=== PATIENT | female | born 1965 | race Caucasian/White ===

== ENCOUNTER 2022-10-12 07:43 | Inpatient (IN) | payer OTHER, SELFPAY ==
[2022-10-12] VITALS (17 sets, daily range): BP systolic 87–118; BP diastolic 57–79; PULSE 69–97; RESP 16–79; TEMP 35.8–37.3; O2SAT 94–100; BMI 21.0; BMI 22.0
--- NOTE | 2022-10-12 08:09 | ED.ABDPAIN ---
HPI - Abdominal Pain General Time Seen by Provider: 08:05 Date Seen: 10/12/22 Chief Complaint: Abdominal Pain Stated Complaint: Severe abdominal pain/vomiting Time Seen by Provider: 10/12/22 08:09 Source: patient, family, RN notes reviewed and old records reviewed Mode of arrival: ambulatory Limitations: no limitations History of Present Illness HPI narrative: for Patient is a very pleasant 57-year-old female previously healthy who comes to the emergency room for evaluation regarding vomiting and abdominal pain. Patient notes that she thought she had some stomach acid last night and took a Pepcid at approximately 1700 hours and then 2300 hours. She states that it this did help the burping that she was experiencing. However it 2300 hours she awoke with the significant abdominal pain has been persistently vomiting. The last time this happened was probably 1 and half to 2 years ago and lasted for 4 days. At that time patient did see GI specialist at [facility]. They note nothing was found at that time and they were instructed to return if this should happen again. Patient notes normal bowel movement this morning. She denies urinary issues, diarrhea. She does agree that her abdomen seems somewhat bloated. She has not had any fevers chills. She denies any congestion sore throat or runny nose. She does not smoke nor use alcohol daily. Related Data Home Medications Medication Instructions Recorded Confirmed No Known Home Medications 10/12/22 10/12/22 Allergies Allergy/AdvReac Type Severity Reaction Status Date / Time No Known Drug Allergies Allergy Verified 10/12/22 07:51 Review of Systems Status of ROS Reports: 10 or more systems reviewed and unremarkable except as noted in History and below Const Denies: fever or chills ENMT Denies: throat pain, difficulty swallowing or hoarseness Cardio Denies: chest pain, swelling of feet/ankles or shortness of breath with exertion Resp Denies: shortness of breath or cough GI Reports: abdominal pain, nausea and vomiting; Denies: diarrhea or difficulty swallowing Denies: painful urination or urinary frequency Musculo Denies: back pain (Pain does not radiate) Neuro Denies: headache Endo Denies: excessive urination PFSH PFSH Social History Smoking Status: Never smoker Do you use any of these nicotine containing products: None Second hand tobacco smoke exposure: Yes How often do you have a drink containing alcohol: monthly or less How many standard drinks containing alcohol do you have on a typical day: 1 or 2 AUDIT-C Alcohol total score: 1 Non-prescribed substance use: denies use Exam Narrative: Exam Narrative: Patient is alert and oriented. She is in moderate distress very anxious and at the end of our exam she does have excessive retching without major production of vomitus. Eyes are clear. Neck is supple. Heart with regular rate and rhythm. Lungs are clear in all lung lobato. Abdomen is somewhat protuberant. Diffuse tenderness noted. Bowel sounds are somewhat decreased. Lower extremities without edema. Const: Vital Signs, click to edit/add: Vital Signs - 24 hr 10/12/22 07:48 10/12/22 08:31 10/12/22 08:25 Temperature 96.5 F L Pulse Rate 76 Pulse Rate [Pulse Oximeter] 84 73 Respiratory Rate 22 20 Blood Pressure Blood Pressure [Ri ght Upper Arm] 95/79 87/71 L Pulse Oximetry 98 99 100 Oxygen Delivery Me thod Room Air Room Air 10/12/22 08:26 10/12/22 08:30 10/12/22 08:32 Temperature Pulse Rate 79 75 69 Pulse Rate [Pulse Oximeter] Respiratory Rate Blood Pressure 87/57 L 87/71 L Blood Pressure [Ri ght Upper Arm] Pulse Oximetry 100 99 100 Oxygen Delivery Me thod 10/12/22 08:45 10/12/22 09:14 10/12/22 09:16 Temperature Pulse Rate 70 75 74 Pulse Rate [Pulse Oximeter] Respiratory Rate Blood Pressure Blood Pressure [Ri ght Upper Arm] Pulse Oximetry 100 99 100 Oxygen Delivery Me thod Documenting provider has reviewed patient's vital signs: yes Course Course Hospital Course: At this time differential diagnosis includes but is not limited to small-bowel obstruction, biliary colic, colitis, gastroenteritis, pancreatitis, diverticulitis. Will place IV. 1 L of normal saline, Toradol 15 mg IV, morphine 4 mg IV, Zofran 4 mg IV given. Blood work to include CBC, comprehensive panel, CRP, amylase, lipase, urinalysis and abdominal CT will be ordered. Reevaluation(s) Reevaluation #1: Much improved after having received medications. Blood pressure improved to 111 systolic. Vital Signs Vital signs: Initial Vital Signs Temperature 96.5 F L 10/12/22 07:48 Temperature Source Temporal Artery Scan 10/12/22 07:48 Pulse Rate 84 10/12/22 07:48 Respiratory Rate 22 10/12/22 07:48 Blood Pressure 95/79 10/12/22 07:48 Blood Pressure Mean 84 10/12/22 07:48 Blood Pressure Position Supine 10/12/22 07:48 Pulse Oximetry 98 10/12/22 07:48 Oxygen Delivery Method 10/12/22 07:48 Vital Signs Temperature 96.5 F L 10/12/22 07:48 Pulse Rate 84 10/12/22 07:48 Respiratory Rate 22 10/12/22 07:48 Blood Pressure 95/79 10/12/22 07:48 Pulse Oximetry 98 10/12/22 07:48 Oxygen Delivery Method 10/12/22 07:48 Temperature 96.5 F L 10/12/22 07:48 Pulse Rate 74 10/12/22 09:16 Respiratory Rate 20 10/12/22 08:31 Blood Pressure 87/71 L 10/12/22 08:32 Pulse Oximetry 100 10/12/22 09:16 Oxygen Delivery Method 10/12/22 08:31 MDM - Abdominal Pain MDM Narrative Medical decision making narrative: 1. Small-bowel obstruction-patient noted to have thickening of the terminal ileum but no personal or family history of Crohn's disease. Looking back the last time this happened was 4 years ago. History of 2 previous C-sections. Patient improved with morphine and Toradol. Zofran has eliminated the vomiting. At this time will hold off on NG tube as she is much improved. However, I have told patient this may be necessary in the future. Will admit to the floor for surgical consultation, bowel rest and pain control. Note colonoscopy 2020 was normal. Previous colonoscopy had noted to have a polyp. 2. Hypotension-patient is a petite person but blood pressure did drop to 87 systolic. Likely secondary to vomiting although pulse is not tachycardic. 1 L of normal saline given at this time with improvement of blood pressures to 111 systolic. Patient states that she ?runs low?. 3. Disposition-admit to the floor. Medical Records Attestation: I reviewed the patient's medical records. Lab Data Attestation: I reviewed the patient's lab results. Labs: Lab Results 10/12/22 10/12/22 10/12/22 Range/Units 08:00 08:05 08:05 WBC 11.81 H (4.50-11.00) K/uL RBC 5.20 (4.00-5.20) m/uL Hgb 14.3 (12.0-16.0) gm/dL Hct 43.5 (33.0-51.0) % MCV 84 (80-100) fL MCH 28 (26-34) pg MCHC 33 (32-36) gm/dL RDW Coeff of [place] 12.8 (11.5-15.5) % Plt Count 197 (140-440) K/uL Neut % (Auto) 88.9 H (42.0-72.0) % Lymph % (Auto) 4.7 L (20-44) % [place] % (Auto) 6.0 (0.0-11.0) % Eos % (Auto) 0.2 (0.0-7.0) % Baso % (Auto) 0.1 (0.0-3.0) % Neut # (Auto) 10.50 H (1.7-7.0) K/uL Lymph # (Auto) 0.60 L (0.90-2.90) K/uL [place] # (Auto) 0.70 (0.00-0.90) K/UL Eos # (Auto) 0.00 (0.00-0.50) K/uL Baso # (Auto) 0.00 (0.00-0.30) K/uL Sodium 140 (135-149) mmol/L Potassium 4.2 (3.6-5.1) mmol/L Chloride 105 (96-114) mmol/L Carbon Dioxide 24 (20-32) mmol/L BUN 17 (7-30) mg/dL Creatinine 0.8 (0.5-1.5) mg/dL Estimated Creat Clear 78.72 Estimated GFR 86 ml/min Glucose 179 H (60-115) mg/dL Calcium 10.0 (8.4-10.6) mg/dL Total Bilirubin 0.9 (0.1-1.5) mg/dL AST 27 (12-35) U/L ALT 18 (4-35) U/L Alkaline Phosphatase 76 (40-150) U/L C-Reactive Protein < 0.5 L (0.5-1.0) mg/dL Total Protein 7.8 (6.0-8.3) g/dL Albumin 4.7 (3.3-5.0) g/dL Amylase 70 (18-89) U/L Lipase 43 (23-300) U/L SARS-CoV-2 (PCR) Negative SARS-CoV-2 (Negative) Influenza Type A (PCR) Negative PCR FLU A (Negative) Influenza Type B (PCR) Negative PCR FLU B (Negative) RSV (PCR) Negative PCR RSV (Negative) Imaging Data CT scan - abdomen: Attestation: I have reviewed the pertinent imaging results. My impression: Small-bowel obstruction. Radiologist's impression: There is no solid hepatic mass. Hepatic morphology is normal. No radiopaque gallstone. Normal caliber biliary tree. No pancreatic mass or glandular atrophy. No adrenal mass. Symmetric nephrograms. No solid renal mass or perinephric fluid. Spleen size is normal. Small amount of free fluid in the pelvis. No adnexal mass. There is a small bowel obstruction. The transition point is seen within the pelvis involving ileum. This is noted on image 123, series 2. There is mural thickening, and probable mural stratification within the ileum distal to the level of the obstruction. The loops of ileum proximally obstruction demonstrate fecalization of intraluminal contents, measuring up to 3.6 cm in luminal dimension. There is perienteric edema associated with this finding. There is no pneumatosis coli, or pneumatosis intestinalis. The visceral artery branches are patent. Swirling of the mesenteric vasculature in the upper abdomen is also noted. See images 53-68, series 2. No inguinal or pelvic sidewall lymphadenopathy is seen. The retroperitoneum and gastrohepatic ligament are normal. The bone windows demonstrate no suspicious bone lesions. Vertebral body heights are maintained. Disc height loss, primarily at L5-S1. Impression: 1. Small bowel obstruction. 2. Transition point is in the pelvis involving a loop of ileum. Distal to the transition point, the ileum appears thick walled, with questionable engorgement of Vasa recta, and mural hyperenhancement. Does the patient have a history of Crohn disease? 3. Small amount of perienteric edema. No pneumatosis coli or pneumatosis intestinalis. 4. Swirling of mesenteric vasculature in the upper abdomen. No clear evidence for an intestinal volvulus. Discharge Plan Discharge Prescriptions: No Action No Known Home Medications Follow Up/Referrals: Alessandra Elena MD [Primary Care Provider] -
[2022-10-12] MEDS: ONDANSETRON 2 MG/ML inj 4 MG IVP ×3 (08:16→18:33)
[2022-10-12] MEDS: KETOROLAC 15 MG/ML inj IVP (08:18)
[2022-10-12] MEDS: MORPHINE 4 MG/ML INJ IVP (08:20)
--- NOTE | 2022-10-12 08:29 | CRLHL7_ITS ---
For Patients: As a result of the 21st Century Cures Act, medical imaging exams and procedure reports are released immediately into your electronic medical record. You may view this report before your referring provider. If you have questions, please contact your health care provider. INDICATION: ABD PAIN HISTORY: Abdominal pain. COMPARISON: None. TECHNIQUE: CT of the abdomen and pelvis. Coronal/sagittal reconstruction images. 69 cc of Isovue-370 IV. FINDINGS: Lung bases: There is no pleural or pericardial effusion. The heart size is normal. The lung bases demonstrate no acute airspace disease. No basilar pneumothorax. No suspicious pulmonary nodule. Abdomen/pelvis: There is no solid hepatic mass. Hepatic morphology is normal. No radiopaque gallstone. Normal caliber biliary tree. No pancreatic mass or glandular atrophy. No adrenal mass. Symmetric nephrograms. No solid renal mass or perinephric fluid. Spleen size is normal. Small amount of free fluid in the pelvis. No adnexal mass. There is a small bowel obstruction. The transition point is seen within the pelvis involving ileum. This is noted on image 123, series 2. There is mural thickening, and probable mural stratification within the ileum distal to the level of the obstruction. The loops of ileum proximally obstruction demonstrate fecalization of intraluminal contents, measuring up to 3.6 cm in luminal dimension. There is perienteric edema associated with this finding. There is no pneumatosis coli, or pneumatosis intestinalis. The visceral artery branches are patent. Swirling of the mesenteric vasculature in the upper abdomen is also noted. See images 53-68, series 2. No inguinal or pelvic sidewall lymphadenopathy is seen. The retroperitoneum and gastrohepatic ligament are normal. The bone windows demonstrate no suspicious bone lesions. Vertebral body heights are maintained. Disc height loss, primarily at L5-S1. Impression: 1. Small bowel obstruction. 2. Transition point is in the pelvis involving a loop of ileum. Distal to the transition point, the ileum appears thick walled, with questionable engorgement of Vasa recta, and mural hyperenhancement. Does the patient have a history of Crohn disease? 3. Small amount of perienteric edema. No pneumatosis coli or pneumatosis intestinalis. 4. Swirling of mesenteric vasculature in the upper abdomen. No clear evidence for an intestinal volvulus. 5. NG tube placement and surgical consultation is advised. 6. Case reviewed with Dr. Moreno, ED, 10/12/22, 0942 hours. Dictated by Mateus Telles MD @ 10/12/2022 9:42:44 AM Please note that all CT scans at this facility use dose modulation, iterative reconstruction, and/or weight-based dosing when appropriate to reduce radiation dose to as low as reasonably achievable. Dictated by: Mateus Telles MD @ 10/12/2022 09:42:53 (Electronically Signed)
[2022-10-12] MEDS: 0.9 % SODIUM CHLORIDE 1000 ml 1,000 ML IV (08:37)
[2022-10-12 08:39] LABS: Basophils Percent Auto 0.1 % (0.0-3.0); Eosinophils Percent Auto 0.2 % (0.0-7.0); Hematocrit 43.5 % (33.0-51.0); Hemoglobin* 14.3 gm/dL (12.0-16.0); Immature Granulocytes Pct Auto 0.1 %; Lymphocytes Percent Auto 4.7 % (20-44); Mean Corpuscular HGB Conc 33 gm/dL (32-36); Mean Corpuscular Hemoglobin 28 pg (26-34); Mean Corpuscular Volume 84 fL (80-100); Neutrophils Percent Auto 88.9 % (42.0-72.0); Platelet Count* 197 K/uL (140-440); RDW Coefficient of Variation % 12.8 % (11.5-15.5); White Blood Count* 11.81 K/uL (4.50-11.00)
[2022-10-12 08:44] LABS: PCR FLU A Negative PCR FLU A (Negative); PCR FLU B Negative PCR FLU B (Negative); PCR RSV Negative PCR RSV (Negative)
[2022-10-12 08:46] LABS: Slide Review Reflex No
[2022-10-12 08:54] LABS: Albumin* 4.7 g/dL (3.3-5.0); Chloride* 105 mmol/L (96-114)
[2022-10-12 08:55] LABS: Potassium* 4.2 mmol/L (3.6-5.1); Sodium* 140 mmol/L (135-149)
[2022-10-12 08:57] LABS: Amylase* 70 U/L (18-89); Aspartate Amino Transferase* 27 U/L (12-35); Bilirubin Total* 0.9 mg/dL (0.1-1.5); Carbon Dioxide* 24 mmol/L (20-32); Creatinine* 0.8 mg/dL (0.5-1.5); Est. Creatinine Clearance* 78.72; Estimated Glomerular Filt Rate 86 ml/min; Total Protein* 7.8 g/dL (6.0-8.3)
[2022-10-12 08:58] LABS: Alanine Aminotransferase* 18 U/L (4-35); Alkaline Phosphatase* 76 U/L (40-150); Blood Urea Nitrogen* 17 mg/dL (7-30); Glucose* 179 mg/dL (60-115); Lipase* 43 U/L (23-300)
[2022-10-12 09:01] LABS: SARS PCR* Negative SARS-CoV-2 (Negative)
[2022-10-12 09:05] LABS: C Reactive Protein* < 0.5 mg/dL (0.5-1.0)
--- NOTE | 2022-10-12 10:45 | ED.NURSE ---
report was given to to ccu 4 via w/c.
[2022-10-12] MEDS: MORPHINE 2 MG/ML inj IVP ×3 (12:01→18:27)
--- NOTE | 2022-10-12 12:07 | PM.IMHP1 ---
Hospitalist- H&P: HPI History of Present Illness Date Seen: 10/12/22 Chief complaint: Severe abdominal pain/vomiting Narrative: María Sapp is a 57 year old female who presented to the hospital for acute abdominal pain. She noted feeling some abdominal discomfort early yesterday evening, took Pepcid with mild relief, then woke up at 1:30 am with severe abdominal pain, nausea, and vomiting. In the emergency room, CT scan showed the below findings: Impression: 1. Small bowel obstruction. 2. Transition point is in the pelvis involving a loop of ileum. Distal to the transition point, the ileum appears thick walled, with questionable engorgement of Vasa recta, and mural hyperenhancement. Does the patient have a history of Crohn disease? 3. Small amount of perienteric edema. No pneumatosis coli or pneumatosis intestinalis. 4. Swirling of mesenteric vasculature in the upper abdomen. No clear evidence for an intestinal volvulus. 5. NG tube placement and surgical consultation is advised. 6. Case reviewed with Dr. Moreno, ED, 10/12/22, 0942 hours. Dictated by Mateus Telles MD @ 10/12/2022 9:42:44 AM Symptoms in the ED were controlled with Toradol, Zofran, and Morphine. Her vomiting resolved with medication and NG tube not required. She is admitted to the hospitalist team for further management. Patient is generally healthy, has had 2 C-sections. No known history of Crohn's disease. She does endorse having 3 other episodes of self-resolved acute nausea and vomiting, and presumed they were all related to food poisoning. María was not seen for these episodes until her most recent episode in 2019. At that time, she had a follow-up with Dr. Jensen of GI that was unremarkable. Her last colonoscopy was in 2020 and normal, prior to that she had a polyp removed in 2016. There is no self of family history of autoimmune disease. Review of Systems Status of ROS: Reports: 10 or more systems reviewed and unremarkable except as noted in History and below Narrative: No rashes, no joint pain. No conjunctivitis. [facility] Medical History (Updated 10/12/22 @ 12:59 by Yisel Ramso MD) Healthy adult Migraines Surgical History (Updated 10/12/22 @ 12:20 by Yisel Ramos MD) History of S/P bunionectomy Social History (Updated 10/12/22 @ 12:22 by Yisel Ramos MD) Narrative: Patient lives with locally. She works part-time at the [employer] at [employer]. Nonsmoker, no alcohol use, no drug use. would be medical decision maker if needed. Requests Full Code status. Highest level of school completed/degree received: Bachelor's degree Smoking Status: Never smoker Do you use any of these nicotine containing products: None Second hand tobacco smoke exposure: Yes How often do you have a drink containing alcohol: monthly or less How many standard drinks containing alcohol do you have on a typical day: 1 or 2 AUDIT-C Alcohol total score: 1 Non-prescribed substance use: denies use Caffeine: Yes (1 cup a day) service: No Meds Home Medications and Allergies Home Medications Medication Instructions Recorded Confirmed Type No Known Home Medications 10/12/22 10/12/22 History Allergies Allergy/AdvReac Type Severity Reaction Status Date / Time No Known Drug Allergies Allergy Verified 10/12/22 07:51 Exam Narrative: Exam Narrative: GEN: Alert and oriented, laying comfortably in bed, nontoxic in appearance HEENT: Normal external ears, EOMIs bilaterally, no scleral icterus CV: RRR, No concerning murmurs, rubs, or gallops R: LCTA bilaterally without concerning wheezing, rales, or rhonchi. Air movement adequate Ab: Mild distension, + ttp, bowel sounds hypoactive Ext: wwp, no concerning edema Skin: No concerning skin lesions or rashes on exposed skin Neuro: No focal deficits, no resting tremor Psych: Appropriate Const: Vital Signs, click to edit/add: Vital Signs - 24 hr 10/12/22 07:48 10/12/22 08:31 10/12/22 08:25 Temperature 96.5 F L Pulse Rate 76 Pulse Rate [Apical ] Pulse Rate [Pulse Oximeter] 84 73 Respiratory Rate 22 20 Blood Pressure Blood Pressure [Ri ght Arm] Blood Pressure [Ri ght Upper Arm] 95/79 87/71 L Pulse Oximetry 98 99 100 Oxygen Delivery Me thod Room Air Room Air 10/12/22 08:26 10/12/22 08:30 10/12/22 08:32 Temperature Pulse Rate 79 75 69 Pulse Rate [Apical ] Pulse Rate [Pulse Oximeter] Respiratory Rate Blood Pressure 87/57 L 87/71 L Blood Pressure [Ri ght Arm] Blood Pressure [Ri ght Upper Arm] Pulse Oximetry 100 99 100 Oxygen Delivery Me thod 10/12/22 08:45 10/12/22 09:14 10/12/22 09:16 Temperature Pulse Rate 70 75 74 Pulse Rate [Apical ] Pulse Rate [Pulse Oximeter] Respiratory Rate Blood Pressure Blood Pressure [Ri ght Arm] Blood Pressure [Ri ght Upper Arm] Pulse Oximetry 100 99 100 Oxygen Delivery Me thod 10/12/22 11:04 10/12/22 09:14 10/12/22 09:30 Temperature Pulse Rate Pulse Rate [Apical ] 78 Pulse Rate [Pulse Oximeter] 78 79 76 Respiratory Rate 16 79 H 18 Blood Pressure Blood Pressure [Ri ght Arm] 118/65 Blood Pressure [Ri ght Upper Arm] 111/71 111/63 Pulse Oximetry 97 99 98 Oxygen Delivery Me thod Room Air Room Air Room Air 10/12/22 10:00 10/12/22 10:30 Temperature Pulse Rate Pulse Rate [Apical ] Pulse Rate [Pulse Oximeter] 81 80 Respiratory Rate 18 Blood Pressure Blood Pressure [Ri ght Arm] Blood Pressure [Ri ght Upper Arm] 117/64 116/65 Pulse Oximetry 99 97 Oxygen Delivery Me thod Room Air Room Air Hospitalist - H&P: Result Labs Labs: Short CBC 10/12/22 Range/Units 08:05 WBC 11.81 H (4.50-11.00) K/uL Hgb 14.3 (12.0-16.0) gm/dL Hct 43.5 (33.0-51.0) % Plt Count 197 (140-440) K/uL BMP 10/12/22 08:05 Sodium 140 Potassium 4.2 Chloride 105 Carbon Dioxide 24 BUN 17 Creatinine 0.8 Glucose 179 H Calcium 10.0 Liver Function 10/12/22 Range/Units 08:05 Total Bilirubin 0.9 (0.1-1.5) mg/dL AST 27 (12-35) U/L ALT 18 (4-35) U/L Alkaline Phosphatase 76 (40-150) U/L Albumin 4.7 (3.3-5.0) g/dL Assessment and Plan Assessment and plan (1) Small bowel obstruction: Problem comment: - concern for edema in terminal ileum (?Crohns) Status: Acute Assessment and Plan: - admit to hospital - continue pain management and anti-emetics - low threshold for placing NG - General Surgery consulted, 10/13 small bowel follow through recommended to evaluate terminal ileum - Full Code status requested
--- NOTE | 2022-10-12 12:40 | PC.NURSE ---
Pt had an emesis about 1220, about 50cc. Dr. Ramos updated. MD in the room and discussed NG placement with pt.. Per MD is pt. has another emesis NG will be placed.
[2022-10-12] MEDS: LACTATED RINGERS 1000 ML 1,000 ML 150 ML IV ×2 (13:15→18:27)
[2022-10-12] MEDS: PANTOPRAZOLE SODIUM 40 MG INJ IVP (14:02)
--- NOTE | 2022-10-12 19:20 | PC.NURSE ---
End of shift-- Very pleasant and cooperative, alert and oriented patient. VSS and pt is afebrile. SPO2 maintained >94% on RA. Pain appears well managed with morphine roughly q2h. She denied nausea this evening but was given Zofran with pain meds. She c/o feeling thirsty which has been managed with swabs and mouth moisturizer. LS CTA. BS+x4, but hypoactive. She was up to BR independently this evening and tolerated it well. Report to HERB Patterson.
[2022-10-12] MEDS: ENOXAPARIN 40 MG/0.4 ML INJ SUBCUT (22:36)
[2022-10-13] VITALS (7 sets, daily range): BP systolic 104–110; BP diastolic 60–68; PULSE 78–90; RESP 16–18; TEMP 36.8–37.2; O2SAT 94–99
[2022-10-13] MEDS: LACTATED RINGERS 1000 ML 1,000 ML 150 ML IV ×4 (00:50→20:03)
--- NOTE | 2022-10-13 01:27 | PC.NURSE ---
Shift Note [id number]: Pt sleeping during assessment, awakens easily. She denies nausea at this time and rates pain 1/10. Discussed pain med options/side effects including constipation. Pt agrees she doesn't need pain medication at this time, but verbalizes understanding how to request with pain increase. Discussed importance of ambulation and NPO status. Pt verbalizes understanding. VS WNL and LS COA. Afebrile.
--- NOTE | 2022-10-13 06:01 | PC.NURSE ---
Patient was alert and oriented x4. Remains NPO. Endorses small amount of abdominal pain but declines pain medication. Denies nausea. Bowel sounds hypoactive. She was pleasant and cooperative with cares.
[2022-10-13 06:26] LABS: Basophils Absolute Auto 0.01 K/uL (0.00-0.30); Basophils Percent Auto 0.2 % (0.0-3.0); Eosinophils Absolute Auto 0.05 K/uL (0.00-0.50); Eosinophils Percent Auto 1.1 % (0.0-7.0); Hematocrit 33.2 % (33.0-51.0); Hemoglobin* 10.7 gm/dL (12.0-16.0); Lymphocytes Absolute Auto 0.96 K/uL (0.90-2.90); Lymphocytes Percent Auto 21.1 % (20-44); Mean Corpuscular HGB Conc 32 gm/dL (32-36); Mean Corpuscular Hemoglobin 28 pg (26-34); Mean Corpuscular Volume 87 fL (80-100); Monocytes Percent Auto 14.3 % (0.0-11.0); Neutrophils Absolute Auto 2.87 K/uL (1.7-7.0); Neutrophils Percent Auto 63.3 % (42.0-72.0); Platelet Count* 144 K/uL (140-440); RDW Coefficient of Variation % 13.3 % (11.5-15.5); Red Blood Count 3.84 m/uL (4.00-5.20); White Blood Count* 4.54 K/uL (4.50-11.00)
[2022-10-13 06:39] LABS: Albumin* 3.2 g/dL (3.3-5.0); Chloride* 108 mmol/L (96-114)
[2022-10-13 06:40] LABS: Potassium* 4.5 mmol/L (3.6-5.1); Sodium* 138 mmol/L (135-149)
[2022-10-13 06:42] LABS: Bilirubin Total* 0.7 mg/dL (0.1-1.5); Creatinine* 0.7 mg/dL (0.5-1.5); Est. Creatinine Clearance* 90.53; Estimated Glomerular Filt Rate 101 ml/min
[2022-10-13 06:43] LABS: Alanine Aminotransferase* 12 U/L (4-35); Alkaline Phosphatase* 43 U/L (40-150); Aspartate Amino Transferase* 20 U/L (12-35); Blood Urea Nitrogen* 14 mg/dL (7-30); Carbon Dioxide* 31 mmol/L (20-32); Glucose* 109 mg/dL (60-115); Lipase* 21 U/L (23-300); Total Protein* 5.5 g/dL (6.0-8.3)
[2022-10-13 06:44] LABS: Calcium* 8.3 mg/dL (8.4-10.6)
[2022-10-13 06:46] LABS: C Reactive Protein* 7.2 mg/dL (0.5-1.0)
[2022-10-13 07:07] LABS: Erythrocyte SedimentationRate* 17 mm/hr (2-20)
[2022-10-13 07:50] LABS: Slide Review Reflex Yes
[2022-10-13 07:51] LABS: Slide Review Acceptable Review (Acceptable)
[2022-10-13] MEDS: ONDANSETRON 2 MG/ML inj 4 MG IVP ×2 (10:43→20:11)
[2022-10-13] MEDS: PROCHLORPERAZINE 5 MG/ML VIAL 10 MG IV (11:09)
--- NOTE | 2022-10-13 11:40 | P.GSCN_ITS ---
History of Present Illness Consult details Date Seen: 10/13/22 Consult date: 10/13/22 Narrative: Patient presented to the hospital on 10/12/2022 for worsening abdominal pain, nausea and vomiting. On she noticed some distention of her abdomen and felt ?gassy?. She took some Pepcid at home, which did not help. That evening her pain worsened and she started to have nausea and vomiting. She also reports liquidy stools. She has continued to pass gas, last this morning. Her abdominal surgical history is positive for x2. She denies any fevers or chills. She states that she has had 3 previous episodes over the last 8 years that have been similar to this, the last 1 was 2 years earlier and lasted about 4 days. She has always manage this at home. She has seen Dr. Jensen at [facility] for these episodes, with a diagnosis at the time of gastroenteritis. Her last colonoscopy was in 2020 and normal per the patient. She does have a history of polyps. No family history or personal history of inflammatory bowel disease. Review of Systems Status of ROS: Reports: 6 or more systems reviewed and unremarkable except as noted in History and below [facility] Medical History (Updated 10/12/22 @ 12:59 by Yisel Ramos MD) Healthy adult Migraines Surgical History (Updated 10/12/22 @ 12:20 by Yisel Ramos MD) History of S/P bunionectomy Social History (Updated 10/12/22 @ 12:22 by Yisel Ramos MD) Narrative: Patient lives with locally. She works part-time at the [employer] at [employer]. Nonsmoker, no alcohol use, no drug use. would be medical decision maker if needed. Requests Full Code status. Highest level of school completed/degree received: Bachelor's degree Smoking Status: Never smoker Do you use any of these nicotine containing products: None Second hand tobacco smoke exposure: Yes How often do you have a drink containing alcohol: monthly or less How many standard drinks containing alcohol do you have on a typical day: 1 or 2 AUDIT-C Alcohol total score: 1 Non-prescribed substance use: denies use Caffeine: Yes (1 cup a day) service: No Meds Home Medications and Allergies Home Medications Medication Instructions Recorded Confirmed Type No Known Home Medications 10/12/22 10/12/22 History Allergies Allergy/AdvReac Type Severity Reaction Status Date / Time No Known Drug Allergies Allergy Verified 10/12/22 07:51 Exam Narrative: Exam Narrative: General: Alert and oriented, no acute distress. Some moderate discomfort when lying in bed and nausea. Respiratory: Equal breath rise bilaterally, maintained on room air CV: Regular rhythm rate Abdomen: Mild distention, soft but diffusely tender with no guarding or rebound. Const: Vital Signs, click to edit/add: Vital Signs - 24 hr 10/12/22 13:50 10/12/22 15:00 10/12/22 15:00 Temperature 98.5 F 98.5 F Pulse Rate [Apical ] 82 Pulse Rate [Pulse Oximeter] 82 Respiratory Rate 16 20 20 Blood Pressure [Ri ght Arm] 108/62 108/66 Pulse Oximetry 96 96 96 Oxygen Delivery Me thod Room Air Room Air Room Air 10/12/22 15:00 10/12/22 19:00 10/12/22 23:00 Temperature 99.1 F Pulse Rate [Apical ] 82 Pulse Rate [Pulse Oximeter] 82 96 Respiratory Rate 20 18 18 Blood Pressure [Ri ght Arm] 116/67 Pulse Oximetry 95 94 Oxygen Delivery Me thod Room Air Room Air 10/12/22 23:00 10/12/22 23:00 10/13/22 03:00 Temperature 98.9 F 99.0 F Pulse Rate [Apical ] 97 97 88 Pulse Rate [Pulse Oximeter] Respiratory Rate 18 18 16 Blood Pressure [Ri ght Arm] 110/65 105/62 Pulse Oximetry 97 96 Oxygen Delivery Me thod Room Air Room Air 10/13/22 07:33 10/13/22 07:33 10/13/22 11:01 Temperature 98.5 F 98.4 F Pulse Rate [Apical ] 85 78 Pulse Rate [Pulse Oximeter] Respiratory Rate 16 16 18 Blood Pressure [Ri ght Arm] 110/68 106/62 Pulse Oximetry 99 99 95 Oxygen Delivery Me thod Room Air Room Air Room Air Results Labs Labs: Abnormal lab results 10/13/22 10/13/22 Range/Units 05:52 05:52 RBC 3.84 L (4.00-5.20) m/uL Hgb 10.7 L (12.0-16.0) gm/dL [place] % (Auto) 14.3 H (0.0-11.0) % Calcium 8.3 L (8.4-10.6) mg/dL C-Reactive Protein 7.2 H (0.5-1.0) mg/dL Total Protein 5.5 L (6.0-8.3) g/dL Albumin 3.2 L (3.3-5.0) g/dL Lipase 21 L (23-300) U/L Diabetes panel 10/13/22 Range/Units 05:52 Sodium 138 (135-149) mmol/L Potassium 4.5 (3.6-5.1) mmol/L Chloride 108 (96-114) mmol/L Carbon Dioxide 31 (20-32) mmol/L BUN 14 (7-30) mg/dL Creatinine 0.7 (0.5-1.5) mg/dL Glucose 109 (60-115) mg/dL Calcium 8.3 L (8.4-10.6) mg/dL AST 20 (12-35) U/L ALT 12 (4-35) U/L Alkaline Phosphatase 43 (40-150) U/L Total Protein 5.5 L (6.0-8.3) g/dL Albumin 3.2 L (3.3-5.0) g/dL Calcium panel 10/13/22 Range/Units 05:52 Calcium 8.3 L (8.4-10.6) mg/dL Albumin 3.2 L (3.3-5.0) g/dL Pituitary panel 10/13/22 Range/Units 05:52 Sodium 138 (135-149) mmol/L Potassium 4.5 (3.6-5.1) mmol/L Chloride 108 (96-114) mmol/L Carbon Dioxide 31 (20-32) mmol/L BUN 14 (7-30) mg/dL Creatinine 0.7 (0.5-1.5) mg/dL Glucose 109 (60-115) mg/dL Calcium 8.3 L (8.4-10.6) mg/dL Adrenal panel 10/13/22 Range/Units 05:52 Sodium 138 (135-149) mmol/L Potassium 4.5 (3.6-5.1) mmol/L Chloride 108 (96-114) mmol/L Carbon Dioxide 31 (20-32) mmol/L BUN 14 (7-30) mg/dL Creatinine 0.7 (0.5-1.5) mg/dL Glucose 109 (60-115) mg/dL Calcium 8.3 L (8.4-10.6) mg/dL Total Bilirubin 0.7 (0.1-1.5) mg/dL AST 20 (12-35) U/L ALT 12 (4-35) U/L Alkaline Phosphatase 43 (40-150) U/L Total Protein 5.5 L (6.0-8.3) g/dL Albumin 3.2 L (3.3-5.0) g/dL All other labs normal. Imaging Abdomen CT scan report/results: report reviewed and image reviewed Assessment and Plan Assessment and plan (1) Small bowel obstruction: Problem comment: - concern for edema in terminal ileum (?Crohns) Status: Acute Plan Patient is a 57-year-old female with evidence of a small-bowel obstruction. Vital signs have been stable, no tachycardia. Labs did demonstrate a mild leukocytosis on admission, which has since normalized. A CT scan was obtained which demonstrated edema and narrowing of the terminal ileum. Question scarring associated with Crohn's disease given the location. She has continued to pass gas since being in the hospital, which is consistent with a partial obstruction. She was able to keep down the Gastrografin contrast for a small-bowel follow- through today. Agree with continued medical management at this time and wiill plan to follow up on images from the small bowel follow through. I also recommend consulting GI to discuss a possible role of steroids given the edema present at the terminal ileum and the concern for Crohn's disease.
[2022-10-13] MEDS: PANTOPRAZOLE SODIUM 40 MG INJ IVP (13:10)
--- NOTE | 2022-10-13 14:23 | P.IMPN_ITS ---
Progress Note: A&P Assessment and plan (1) Small bowel obstruction: Problem details: - No NG currently -meds keeping n/v under control -f/u imaging post gastrograffin pending -now stooling -follow clinically Status: Acute Subjective Date Seen: 10/13/22 Interval history: Daily Progress Note - Hospital Medicine #: 2 CC: Small-bowel obstruction possible IBD diagnosis OVERNIGHT UPDATES FROM STAFF & MED, LAB, IMAGING UPDATES Patient continues to have nausea and intermittent vomiting. Tolerated the Gastrografin challenge this morning but within a couple of hours started feeling nauseated had some emesis. IV Compazine help this quite a bit. Shortly after the nausea and emesis she did have a large stool. She feels a lot better. General surgery is on board with her care. She has had previous colonoscopies. The 1 in her 20s was for a bloody bowel movement that was negative. She has also had 2 colonoscopies for colorectal cancer screening that initially revealed a polyp and then was follow-up normal. Review of Systems: See subjective Cardiac: No new chest pain/pressure/palpitations. Respiratory: no new dyspnea. GI: N/V - crampy abdominal pain. Objective: Vitals: see above Lungs: Clear. Cardiac: S1S2. Abdomen: generally tender without rebound. hypoactive BS. Disposition/Potential discharge - Likely to return to previous living situation. Total time is 35 minutes with greater than 50% spent in counseling and coordination of care. Exam Const: Vital Signs, click to edit/add: Vital Signs - 24 hr 10/12/22 15:00 10/12/22 15:00 10/12/22 15:00 Temperature 98.5 F Pulse Rate [Apical ] 82 82 Pulse Rate [Pulse Oximeter] 82 Respiratory Rate 20 20 20 Blood Pressure [Ri ght Arm] 108/66 Pulse Oximetry 96 96 Oxygen Delivery Me thod Room Air Room Air 10/12/22 19:00 10/12/22 23:00 10/12/22 23:00 Temperature 99.1 F Pulse Rate [Apical ] 97 Pulse Rate [Pulse Oximeter] 96 Respiratory Rate 18 18 18 Blood Pressure [Ri ght Arm] 116/67 Pulse Oximetry 95 94 Oxygen Delivery Me thod Room Air Room Air 10/12/22 23:00 10/13/22 03:00 10/13/22 07:33 Temperature 98.9 F 99.0 F Pulse Rate [Apical ] 97 88 Pulse Rate [Pulse Oximeter] Respiratory Rate 18 16 16 Blood Pressure [Ri ght Arm] 110/65 105/62 Pulse Oximetry 97 96 99 Oxygen Delivery Me thod Room Air Room Air Room Air 10/13/22 07:33 10/13/22 11:01 Temperature 98.5 F 98.4 F Pulse Rate [Apical ] 85 78 Pulse Rate [Pulse Oximeter] Respiratory Rate 16 18 Blood Pressure [Ri ght Arm] 110/68 106/62 Pulse Oximetry 99 95 Oxygen Delivery Me thod Room Air Room Air Labs Labs: Laboratory Results - last 24 hr 10/13/22 10/13/22 10/13/22 05:52 05:52 05:52 WBC 4.54 RBC 3.84 L Hgb 10.7 L Hct 33.2 MCV 87 MCH 28 MCHC 32 RDW Coeff of [place] 13.3 Plt Count 144 Neut % (Auto) 63.3 Lymph % (Auto) 21.1 [place] % (Auto) 14.3 H Eos % (Auto) 1.1 Baso % (Auto) 0.2 Neut # (Auto) 2.87 Lymph # (Auto) 0.96 [place] # (Auto) 0.60 Eos # (Auto) 0.05 Baso # (Auto) 0.01 Diff Slide Review Acceptable Review ESR 17 Sodium 138 Potassium 4.5 Chloride 108 Carbon Dioxide 31 BUN 14 Creatinine 0.7 Estimated Creat Clear 90.53 Estimated GFR 101 Glucose 109 Calcium 8.3 L Total Bilirubin 0.7 AST 20 ALT 12 Alkaline Phosphatase 43 C-Reactive Protein 7.2 H Total Protein 5.5 L Albumin 3.2 L Lipase 21 L
--- NOTE | 2022-10-13 17:00 | CRLHL7_ITS ---
For Patients: As a result of the Century Cures Act, medical imaging exams and procedure reports are released immediately into your electronic medical record. You may view this report before your referring provider. If you have questions, please contact your health care provider. INDICATION: SBO 2 eval if it will go. TECHNIQUE: Abdomen 2 view. COMPARISON: CT of the abdomen and pelvis from 10/12/2022. FINDINGS: Bowel: Positive oral contrast fills normal caliber colon. Proximal small bowel loops appear centrally decompressed. Other: No sign of free air. No sign of soft tissue mass. No suspicious calcifications. Osseous structures are unremarkable for age. IMPRESSION: Oral contrast in normal appearing colon. Dictated by Roe Healy MD @ 10/13/2022 6:04:08 PM (Electronically Signed)
--- NOTE | 2022-10-13 17:41 | PC.NURSE ---
Shift Summary: Patient pleasant and cooperative. Up with SBA to bathroom, has been refusing to walk in halls due to fatigue and increased nausea with movement. Had x1 emesis this morning 200cc. x2 BM today, one medium formed and pebble like, the second loose and watery. Stated nausea has improved this afternoon. C/o headache, managed with ice back on back of neck and lighting dimmed in room, patient not requesting PRN acetaminophen due to nausea.
[2022-10-13] MEDS: ENOXAPARIN 40 MG/0.4 ML INJ SUBCUT (20:04)
[2022-10-14] VITALS (7 sets, daily range): BP systolic 111–129; BP diastolic 58–76; PULSE 78–90; RESP 16–18; TEMP 36.6–37.1; O2SAT 92–97
[2022-10-14] MEDS: LACTATED RINGERS 1000 ML 1,000 ML 150 ML IV ×2 (02:57→09:49)
--- NOTE | 2022-10-14 04:22 | PC.NURSE ---
Shift note: Pt continue on NPO and monitoring for complications associated with the disease. Had 1x loose medium BM tonight. Tolerating pain very well, refused pain medication. had 1x nausea without vomiting. Pt is pleasant and cooperative with care, independent in room.
[2022-10-14 06:37] LABS: Ionized Calcium* 1.15 mmol/L (1.11-1.30); Lactate* 0.8 mmol/L (0.5-1.9)
[2022-10-14 06:48] LABS: Hemoglobin* 10.6 gm/dL (12.0-16.0); Mean Corpuscular HGB Conc 32 gm/dL (32-36); Mean Corpuscular Hemoglobin 28 pg (26-34); Mean Corpuscular Volume 87 fL (80-100); Platelet Count* 136 K/uL (140-440); Red Blood Count 3.78 m/uL (4.00-5.20); White Blood Count* 4.97 K/uL (4.50-11.00)
[2022-10-14 06:57] LABS: Slide Review Reflex No
[2022-10-14 07:00] LABS: Albumin* 2.9 g/dL (3.3-5.0); Chloride* 108 mmol/L (96-114); Sodium* 139 mmol/L (135-149)
[2022-10-14 07:01] LABS: Potassium* 4.1 mmol/L (3.6-5.1)
[2022-10-14 07:03] LABS: Alkaline Phosphatase* 39 U/L (40-150); Aspartate Amino Transferase* 19 U/L (12-35); Bilirubin Total* 0.5 mg/dL (0.1-1.5); Blood Urea Nitrogen* 9 mg/dL (7-30); Carbon Dioxide* 29 mmol/L (20-32); Creatinine* 0.6 mg/dL (0.5-1.5); Est. Creatinine Clearance* 105.61; Estimated Glomerular Filt Rate 105 ml/min; Glucose* 89 mg/dL (60-115); Total Protein* 5.2 g/dL (6.0-8.3)
[2022-10-14 07:04] LABS: Alanine Aminotransferase* 10 U/L (4-35)
[2022-10-14 07:06] LABS: C Reactive Protein* 6.4 mg/dL (0.5-1.0)
--- NOTE | 2022-10-14 09:58 | PM.GSPN ---
Subjective Subjective Date Seen: 10/14/22 Interval history: Patient is doing better this morning. She has had multiple loose stools. Her last episode of vomiting was yesterday after drinking the Gastrografin contrast. Since then she has had minimal nausea and is feeling like trying liquids this morning. She has been able to ambulate without difficulty. She wonders if this most recent episode of abdominal pain was brought on by stress. She relates that she has had a very stressful week with her daughter having surgery at [place] and her being diagnosed with COVID. Exam Narrative: Exam Narrative: General: Alert and oriented, no acute distress Abdomen: Nondistended, soft. Mild diffuse tenderness to deep palpation with no guarding or rebound. Active bowel sounds. Const: Vital Signs, click to edit/add: Vital Signs - 24 hr 10/13/22 11:01 10/13/22 15:32 10/13/22 15:33 Temperature 98.4 F 98.3 F Pulse Rate [Apical ] 78 84 Respiratory Rate 18 16 16 Blood Pressure [Ri ght Arm] 106/62 104/63 Pulse Oximetry 95 96 96 Oxygen Delivery Me thod Room Air Room Air Room Air 10/13/22 19:00 10/13/22 23:00 10/13/22 23:00 Temperature 98.8 F 98.7 F Pulse Rate [Apical ] 79 90 Respiratory Rate 16 16 16 Blood Pressure [Ri ght Arm] 109/64 109/60 Pulse Oximetry 94 94 94 Oxygen Delivery Me thod Room Air Room Air Room Air 10/14/22 03:00 Temperature 98.7 F Pulse Rate [Apical ] 81 Respiratory Rate 16 Blood Pressure [Ri ght Arm] 111/65 Pulse Oximetry 95 Oxygen Delivery Me thod Room Air Labs/Imaging Imaging Imaging: Abdominal x-ray reviewed, evidence of contrast within colon. Progress Note: A&P Assessment and plan (1) Small bowel obstruction: Status: Acute Assessment and Plan: Patient is a 57-year-old female who was admitted with a partial small-bowel obstruction. A Gastrografin challenge was performed yesterday, with evidence of contrast in the colon. She is now having multiple loose stools. Recommend a clear liquid diet this morning, advance as tolerated. Patient should follow up with Gastroenterology as an outpatient.
[2022-10-14] MEDS: PANTOPRAZOLE SODIUM 40 MG INJ IVP (12:56)
--- NOTE | 2022-10-14 15:54 | PM.IMPN1 ---
Progress Note: A&P Assessment and plan (1) Small bowel obstruction: Problem details: advance to clears. dc iv. likely, if diet advance is tolerated, home tomorrow. Status: Acute Subjective Date Seen: 10/14/22 Interval history: Daily Progress Note - Hospital Medicine Day #: 3 CC: Small-bowel obstruction possible IBD diagnosis OVERNIGHT UPDATES FROM STAFF & MED, LAB, IMAGING UPDATES has improved overnight. passing stool. tolerating a few clears. less nausea. contrast seen in the colon on gastrograffin study last night. does not have an NG. Vitals r reviewed in stable Hemoglobin stable. General chemistries are unremarkable. C reactive protein is down trending, albumin and protein are low. Review of Systems: See subjective Cardiac: No new chest pain/pressure/palpitations. Respiratory: no new dyspnea. GI: N/V - crampy abdominal pain. Objective: Vitals: see above Lungs: Clear. Cardiac: S1S2. Abdomen: generally tender without rebound. Disposition/Potential discharge - Likely to return to previous living situation. Total time is 35 minutes with greater than 50% spent in counseling and coordination of care. Exam Const: Vital Signs, click to edit/add: Vital Signs - 24 hr 10/13/22 19:00 10/13/22 23:00 10/13/22 23:00 Temperature 98.8 F 98.7 F Pulse Rate [Apical ] 79 90 Pulse Rate [Pulse Oximeter] Respiratory Rate 16 16 16 Blood Pressure [Ri ght Arm] 109/64 109/60 Pulse Oximetry 94 94 94 Oxygen Delivery Me thod Room Air Room Air Room Air 10/14/22 03:00 10/14/22 09:00 10/14/22 09:00 Temperature 98.7 F 98.8 F Pulse Rate [Apical ] 81 Pulse Rate [Pulse Oximeter] 81 Respiratory Rate 16 16 16 Blood Pressure [Ri ght Arm] 111/65 129/76 Pulse Oximetry 95 95 95 Oxygen Delivery Me thod Room Air Room Air Room Air 10/14/22 11:00 10/14/22 15:45 10/14/22 15:46 Temperature 97.8 F 98.2 F Pulse Rate [Apical ] 90 89 Pulse Rate [Pulse Oximeter] Respiratory Rate 16 16 Blood Pressure [Ri ght Arm] 122/72 116/58 L Pulse Oximetry 92 97 97 Oxygen Delivery Me thod Room Air Room Air Room Air Labs Labs: Laboratory Results - last 24 hr 10/14/22 10/14/22 10/14/22 05:46 05:46 05:46 WBC 4.97 RBC 3.78 L Hgb 10.6 L Hct 33.0 MCV 87 MCH 28 MCHC 32 Plt Count 136 L Sodium 139 Potassium 4.1 Chloride 108 Carbon Dioxide 29 BUN 9 Creatinine 0.6 Estimated Creat Clear 105.61 Estimated GFR 105 Glucose 89 Lactate 0.8 Calcium 8.0 L Ionized Calcium [place] 1.15 Magnesium 2.0 Total Bilirubin 0.5 AST 19 ALT 10 Alkaline Phosphatase 39 L C-Reactive Protein 6.4 H Total Protein 5.2 L Albumin 2.9 L
--- NOTE | 2022-10-14 18:50 | PC.NURSE ---
Shift Summary: Patient advanced to regular diet for dinner, tolerating diet well, denies nausea or pain. Continues to be independent, ambulating frequently in halls. IV saline locked this afternoon. Vitals stable and WNL.
[2022-10-14] MEDS: ENOXAPARIN 40 MG/0.4 ML INJ SUBCUT (20:02)
[2022-10-15 04:50] VITALS: BP 121/80; PULSE 68; RESP 16; TEMP 36.8; O2SAT 95
[2022-10-15 07:00] VITALS: BP 129/77; PULSE 68; RESP 16; TEMP 36.8; O2SAT 97
--- NOTE | 2022-10-15 07:31 | PC.NURSE ---
End of shift status [id number] Pt alert and oriented. Pleasant and cooperative. Denies pain and nausea. VSS on room air. Up independently. Tolerating regular diet. Plan to d/c today.
--- NOTE | 2022-10-15 10:39 | PC.NURSE ---
PATIENT DISCHARGED TO HOME WITH , UP AD FELI, DECLINING PAIN, ABDOMEN TENDER AT SOME POINTS BUT ONLY WITH OCCASIONAL MOVEMENT, DECLINING NAUSEA, TOLERATING REGULAR DIET, PASSING STOOL THIS MORNING STATED IT WAS MORE FORMED THAN LIQUID COMPARED TO PREVIOUS STOOLS, PATIENT AND VERBALIZED UNDERSTANDING OF DISCHARGE INFORMATION AND HAD NO FURTHER QUESTIONS AT THIS TIME, IV REMOVED, BELONGING FORM SIGNED AND ALL BELONGINGS SENT WITH PATIENT, DECLINED NEED FOR WHEELCHAIR, LEFT TO HOME WITH AROUND 1020.
--- NOTE | 2022-10-15 18:29 | P.DS_ITS ---
DS: Providers Provider Date Seen: 10/15/22 Date of admission: 10/12/22 12:37 Primary care physician: Alessandra Elena MD Admitting Clinician: Chito Willson MD Consults: 10/12/22 12:34 Consult to Physician [CONS] Routine Comment: general surgery Consulting Provider: Sharon Diego Has provider been notified: Yes Attending Physician on discharge: Jesenia Ledesma MD [place] Hospital[facility] Date of Discharge: 10/15/22 DS: Diagnosis Discharge Diagnosis (1) Small bowel obstruction: Status: Acute Problem details: Should see GI in the next month. Consider IBD workup. DS: Summary Hospital Course Hospital Course: HOSPITALIST DISCHARGE SUMMARY ATTENDING PHYSICIAN: Jesenia Ledesma MD FINAL DIAGNOSIS: Small-bowel obstruction, non operative care HOSPITAL FOLLOWUP ISSUES: 1. GI outpatient follow-up. Small-bowel obstruction was suspicious for ileitis possibly related to Crohn's disease. However Crohn's has never been diagnosed. She did have symptoms intermittently over the last 30 years. REFERRALS WHILE ADMITTED: PT and OT REFERRALS AFTER DISCHARGE: Gastroenterology BRIEF HOSPITAL COURSE: María is a 57-year-old with no previous IBD history. She presented with abdominal pain and vomiting. Her workup revealed a small-bowel obstruction. She did not ultimately need an NG tube. She was kept NPO with fluids running. We supported her with antiemetics and analgesics. She progressed to 2 clinical stability and discharge criteria on her own. Given the findings on her CT scan we felt she should see Gastroenterology as an outpatient. She did not receive enteral steroids. SUBSTANTIVE NOTATIONS ON IMAGING, LAB, MICROBIOLOGY/PATHOLOGY STUDIES: Hemoglobin dropped to 10.6 with no evidence of a GI bleed. Electrolytes remained normal. As did her renal function. Her C reactive protein down trended. CT Abdomen 1. Small bowel obstruction. 2. Transition point is in the pelvis involving a loop of ileum. Distal to the transition point, the ileum appears thick walled, with questionable engorgement of Vasa recta, and mural hyperenhancement. Does the patient have a history of Crohn disease? 3. small amount of perienteric edema. No pneumatosis coli or pneumatosis intestinalis. 4. Swirling of mesenteric vasculature in the upper abdomen. No clear evidence for an intestinal volvulus. 5. NG tube placement and surgical consultation is advised. DISCHARGE MEDICATIONS: See Reconciled list - SIGNIFICANT CHANGES: only rx med is zofran at discharge REVIEW OF SYSTEMS No new chest pain or dyspnea Pain controlled No voiding difficulties Tolerating diet challenge PHYSICAL EXAM: CONSTITUTIONAL: eating breakfast, looks much improved. VITAL SIGNS: see record. HEENT: Normocephalic, atraumatic. PERRL, EOMI, conjunctivae pink, no scleral icterus. Ears and nose externally normal. Pharynx normal. NECK: No JVD. No carotid bruit, no thyromegaly, no adenopathy. CHEST: Clear to auscultation bilaterally. HEART: S1 and S2 normal. Edema ABDOMEN: Soft, nontender. Normal bowel sounds. MUSCULOSKELETAL: No gross joint deformity or swelling. NEURO: Cranial nerves intact. Grossly intact. No asymmetric findings. SKIN: No rashes, petechiae, concerning changes PSYCHIATRIC: Mood euthymic. DISPOSITION: Home with Time spent on discharge 37 minutes. Time Spent with Patient Time attestation: Total time spent providing and/or coordinating discharge services: Exam Const: Vital Signs, click to edit/add: Vital Signs - 24 hr 10/14/22 20:11 10/14/22 23:00 10/14/22 23:00 Temperature 98.3 F Pulse Rate [Pulse Oximeter] 78 Respiratory Rate 18 18 18 Blood Pressure [Ri ght Arm] 113/71 Pulse Oximetry 94 94 Oxygen Delivery Me thod Room Air Room Air 10/15/22 04:50 10/15/22 07:00 10/15/22 07:00 Temperature 98.2 F 98.2 F Pulse Rate [Pulse Oximeter] 68 68 Respiratory Rate 16 16 16 Blood Pressure [Ri ght Arm] 121/80 129/77 Pulse Oximetry 95 97 97 Oxygen Delivery Me thod Room Air Room Air Room Air Discharge Plan Discharge Disposition: Home, Self-Care Date of Admission: 10/12/22 12:37 Consulting Providers: Sharon Diego Primary Care Provider: Alessandra Elena Condition: Improved Anticipated Discharge Date/Time: 10/15/22 09:22 Discharge Medications: New ondansetron 4 mg tablet,disintegrating 4 mg PO Q6H Qty: 20 0RF Discharge Orders: Discharge Order (Routine); Ordered 10/15/22 Ordered By: Jesenia Ledesma Patient Education: Ondansetron (By mouth), Bowel Obstruction (DC) Activity Level: Activity as Tolerated Discharge Diet: Regular Follow Up Appointments: Liban Jensen MD [Staff Physician] - 10/23/22 3:30 pm (Discuss IBD dx and hospitalization with SBO. consider dx scope if needed) Forms: [employer] Messenger Info Instructions
== END 2022-10-15 10:20 | disposition home or self-care (01) | DRG 390 ==
LOC: ED 08:57 → MEDSURG 10:40
PROVIDERS: Family Medicine; Admitting Provider Family Medicine; Emergency Provider Family Medicine; PCP Family Medicine; Visit Provider Family Medicine
DX: K56.609 Unspecified intestinal obstruction, unspecified as to partial versus complete obstruction (principal); K58.9 Irritable bowel syndrome, unspecified; R60.0 Localized edema; I95.9 Hypotension, unspecified; R14.0 Abdominal distension (gaseous); Z98.891 History of uterine scar from previous surgery; R11.10 Vomiting, unspecified; R11.0 Nausea; Z86.010 Personal history of colon polyps; Z98.890 Other specified postprocedural states
CPT/HCPCS: 36415; 74018; 74177; 80053; 82150; 82330; 83605; 83690; 83735; 84484; 85025; 85027; 85651; 86140; 87502; 87634; 87635; 99285; C9113; J0780; J1650; J1885; J2270; J2405; J7030; J7120; Q9967